=== PATIENT | female | born 1975 | race Caucasian/White ===

== ENCOUNTER → 2021-07-06 | Day surgery (SDC) | payer OTHER ==
[~2021-07-06] VITALS: Ht 152.4 cm; Wt 83.9 kg
[~2021-07-06] MED LIST: ATORVASTATIN CA20 MG PO; HUMALOG100 UNIT/2 SC; LOSARTAN POTASS25 MG PO; OMEPRAZOLE40 MG PO; OTEZLA30 MG PO; PERCOCET 5-3251 EACH PO; SINGULAIR10 MG PO
[2021-07-06 11:52] LABS: BUN/CREAT RATIO (CALC) 18.3 RATIO; CREATININE 0.71 mg/dL (0.51-0.95); POTASSIUM 4.8 mmol/L (3.5-5.1)
== END | disposition home or self-care (01) ==
LOC: FAS 10:05
PROVIDERS: Orthopaedic Surgery
DX: M65.331 Trigger finger, right middle finger (principal); M65.342 Trigger finger, left ring finger; M65.4 Radial styloid tenosynovitis [de Quervain]; Z88.5 Allergy status to narcotic agent; Z79.4 Long term (current) use of insulin; Z79.899 Other long term (current) drug therapy
CPT/HCPCS: 36415; 80048; 93005; J2250; J2405; J2704; J3010; J7120